=== PATIENT | male | born 1965 | race African-American/Black ===

== ENCOUNTER 2021-10-16 12:25 | Emergency (ER) | payer OTHER ==
[2021-10-16 12:57] LABS: #Basophils 0.1 thou/uL (0.0-0.2); #Lymphocytes 1.8 thou/uL (1.20-3.40); #Monocytes 0.4 thou/uL (0.11-0.59); #Neutrophils 4.7 thou/uL (1.40-6.50); %Basophils 1.1 % (0.0-1.0); %Eosinophils 0.3 % (0.0-10.0); %Monocytes 5.9 % (0.0-10.0); %Neutrophils 66.7 % (42.0-75.0); Hemoglobin 11.1 g/dL (14.0-18.0); Mean Corpuscular HGB CONC 34.1 g/dL (32.0-36.0); Mean Corpuscular Hemoglobin 35.8 pg (27.0-31.0); Mean Platelet Volume 7.3 fL (7.4-10.4); Platelet Count 174 thou/uL (130-400); RBC Distribution Width 13.7 % (11.5-14.5); Red Blood Cell (RBC) Count 3.09 mill/uL (4.70-6.10)
[2021-10-16 13:21] LABS: ALT (SGPT) 55 U/L (8-55); AST (SGOT) 206 U/L (5-34); Albumin 4.2 g/dL (3.5-5.0); Alkaline Phosphatase 84 U/L (40-110); Anion Gap 21 mmol/L (10-20); BUN (Urea Nitrogen) Less than 4 mg/dL (8.4-25.7); Bilirubin, Total 0.9 mg/dL (0.2-1.2); Calc. Creatinine Clearance 0 mL/min (70-130); Carbon Dioxide 19 mmol/L (22-29); Chloride 88 mmol/L (98-107); Estimated GFR 103; Globulin 4.5 g/dL (2.4-3.5); Glucose 89 mg/dL (70-105); Potassium 3.9 mmol/L (3.5-5.1); Protein, Total 8.7 g/dL (6.0-8.3); Sodium 124 mmol/L (136-145)
[2021-10-16 13:55] LABS: Acetaminophen Less than 10.0 mcg/mL (10.0-30.0); Alcohol 73 mg/dL (Less than 10); CK (CPK) 141 U/L (30-200); Salicylate Less than 8.0 mg/dL (15.0-30.0)
[2021-10-16] MEDS ORDERED: Lidocaine 1% MPF 2 ML VIAL ONE (14:05)
[2021-10-16] MEDS ORDERED: Fosphenytoin Sodium 1,500 MG in Sodium Chloride 0.9% 100 ML IVPB SCH (14:30)
== END 2021-10-16 14:58 | disposition home or self-care (01) ==
LOC: ERS 12:25
DX: S01.111A Laceration without foreign body of right eyelid and periocular area, initial encounter (principal); G43.909 Migraine, unspecified, not intractable, without status migrainosus; Z91.14 Patient's other noncompliance with medication regimen; F10.10 Alcohol abuse, uncomplicated; F17.210 Nicotine dependence, cigarettes, uncomplicated
CPT/HCPCS: 12011; 70450; 80053; 80185; 80307; 82550; 84484; 85025; 93005; 96365; J3411; J3490; Q2009

== ENCOUNTER 2023-02-01 15:27 | Emergency (ER) | payer OTHER | END 2023-02-01 17:49 | disposition home or self-care (01) | LOC: ERS 15:27 | DX: L02.01 Cutaneous abscess of face (principal); I10 Essential (primary) hypertension; F17.210 Nicotine dependence, cigarettes, uncomplicated | CPT/HCPCS: 99282 ==